=== PATIENT | male | born 2000 | race African-American/Black ===

== ENCOUNTER 2021-06-22 13:07 | Emergency (ER) | payer SELFPAY ==
[2021-06-22] MEDS ORDERED: Mag-Al Plus 1200 MG/1200 MG/120 MG/30 ML UDCUP ONE (17:45)
[2021-06-22] MEDS ORDERED: Lidocaine Viscous Sol 2% 15 ml UD Cup ONE (17:46)
[2021-06-22] MEDS ORDERED: Ibuprofen 200 MG TAB ONE ×2 (17:46→17:50)
[2021-06-22 17:54] LABS: MONO NEGATIVE CONTROL ZONE White (Negative) (White); MONO POSITIVE CONTROL Pink Line (Positive) (PINK/RED); Mononucleosis NEGATIVE (NEGATIVE)
== END 2021-06-22 18:57 | disposition home or self-care (01) ==
LOC: CSHERS 13:07
DX: J02.0 Streptococcal pharyngitis (principal)
CPT/HCPCS: 86308; 87081; 87430; 99283

== ENCOUNTER 2022-07-26 09:38 | Emergency (ER) | payer SELFPAY ==
[2022-07-26] MEDS ORDERED: Ondansetron ODT 4 MG TAB ONE (11:28)
[2022-07-26] MEDS ORDERED: Ibuprofen 200 MG TAB ONE (11:29)
== END 2022-07-26 11:35 | disposition home or self-care (01) ==
LOC: CSHERS 09:38
DX: J02.9 Acute pharyngitis, unspecified (principal); E86.0 Dehydration; Z20.822 Contact with and (suspected) exposure to COVID-19
CPT/HCPCS: 87081; 87430; 87804; 99284; Q0162; U0003; U0005

== ENCOUNTER 2024-06-17 15:45 | Emergency (ER) | payer SELFPAY | END 2024-06-17 16:56 | disposition home or self-care (01) | LOC: CSHERS 15:45 | DX: H00.011 Hordeolum externum right upper eyelid (principal) | CPT/HCPCS: 99283 ==

== ENCOUNTER 2025-01-28 15:22 | Emergency (ER) | payer SELFPAY | END 2025-01-28 16:28 | disposition home or self-care (01) | LOC: CSHERS 15:22 | DX: M26.609 Unspecified temporomandibular joint disorder, unspecified side (principal) | CPT/HCPCS: 99283 ==